=== PATIENT | male | born 1965 | race Caucasian/White ===

== ENCOUNTER 2018-11-22 02:28 | Emergency (ER) | payer MEDICAID ==
[2018-11-22] MEDS: LIDOCAINE/MYLANTA 40 ML BTL PO (03:54)
== END 2018-11-22 05:31 | disposition home or self-care (01) ==
LOC: FTE 02:28
DX: M54.9 Dorsalgia, unspecified (principal)
CPT/HCPCS: 71046; 99283-25

== ENCOUNTER 2019-01-08 10:51 | Emergency (ER) | payer MEDICAID ==
[2019-01-08] MEDS: ACETAMINOPHEN 325 MG TAB PO (11:15)
[2019-01-08] MEDS: DEXAMETHASONE 4 MG TAB PO (11:19)
== END 2019-01-08 12:18 | disposition home or self-care (01) ==
LOC: FTE 10:51
DX: R05 Cough (principal)
CPT/HCPCS: 71045; 99283-25